=== PATIENT | male | born 1960 ===

== ENCOUNTER 2021-01-24 10:11 | Outpatient (CLI) | payer OTHER | END 2021-01-24 10:12 | disposition home or self-care (01) | LOC: NAV RAD 10:11 | PROVIDERS: ATTEND Nurse Practitioner Family | DX: M25.512 Pain in left shoulder (principal); J18.9 Pneumonia, unspecified organism; M15.9 Polyosteoarthritis, unspecified; M47.812 Spondylosis without myelopathy or radiculopathy, cervical region; M47.816 Spondylosis without myelopathy or radiculopathy, lumbar region; N28.89 Other specified disorders of kidney and ureter; N20.0 Calculus of kidney | CPT/HCPCS: 71046; 72040; 72100 ==